=== PATIENT | female | born 1970 | race Caucasian/White ===

== ENCOUNTER → 2017-05-31 | Outpatient (CLI) | payer MEDICARE, MEDICAID ==
--- NOTE | 2017-05-31 16:25 | RADIOLOGY REPORT (SQ) ---
EXAM DESCRIPTION: CT CERVICAL SPINE WITHOUT COMPLETED DATE/TIME: 05/31/2017 1:07 pm REASON FOR STUDY: CERVICALGIA (M54.2) M54.2 CERVICALGIA COMPARISON: CT cervical spine 11/29/2015 TECHNIQUE: Axial images acquired through the cervical spine without intravenous contrast. Images re viewed with lung, soft tissue and bone windows. Reconstructed coronal and sagittal MPR images review ed. Images stored on PACS. All CT scanners at this facility use dose modulation, iterative reconstruction, and/or weight based d osing when appropriate to reduce radiation dose to as low as reasonably achievable (ALARA). [facility]: Dose Right [facility]: CareDose [facility]: Dose Right [facility]: Teradose 4D [facility]: [employer] RADIATION DOSE: Up-to-date CT equipment and radiation dose reduction techniques were employed. CTDIv ol: 23.2 mGy. DLP: 467 mGy-cm. mGy. LIMITATIONS: None. FINDINGS: ALIGNMENT: Straightening of cervical lordosis MINERALIZATION: Normal. VERTEBRAL BODIES: No fractures or dislocation. DISCS: Craniocervical junction, C1-2, C2-3, C3-4, C4-5 are all unremarkable. At C5-6, asymmetric left-sided high-grade foraminal stenosis results from left paracentral and forami nal bulky bony spurring. This best shown on axial image 43, and sagittal image 16 through 18. Borde rline central canal narrowing. No right foraminal narrowing. Mild left C6-7 foraminal narrowing from uncovertebral hypertrophy. No definite central stenosis or r ight foraminal narrowing. C7-T1 is unremarkable. FACETS, LATERAL MASSES, POSTERIOR ELEMENTS: No fractures. No dislocation. No acute findings. HARDWARE: None in the spine. VISUALIZED RIBS: No fractures. LUNG APICES AND SOFT TISSUES: No significant or acute findings. OTHER: No other significant finding. IMPRESSION: High-grade left C5-6 foraminal narrowing TECHNICAL DOCUMENTATION: JOB ID: [id number] Quality ID # [id number]: Final reports with documentation of one or more dose reduction techniques (e.g., Au tomated exposure control, adjustment of the mA and/or kV according to patient size, use of iterative reconstruction technique) 2010 [employer]- All Rights Reserved
== END ==
LOC: RAD 12:44
PROVIDERS: ATTEND Physician Assistant
DX: M54.2 Cervicalgia (principal); M48.02 Spinal stenosis, cervical region
CPT/HCPCS: 72125

== ENCOUNTER 2017-08-09 08:04 | Day surgery (SDC) | payer MEDICARE, MEDICAID ==
[2017-08-09 08:53] LABS: PROTHROMBIN TIME 12.7 SEC (11.4-15.4)
[2017-08-09 08:54] LABS: PARTIAL THROMBOPLASTIN TIME 32.4 SEC (23.5-35.8)
[2017-08-09] MEDS ORDERED: FENTANYL CITRATE INJ/PF 100 MCG/2 ML AMPUL ONE (09:43)
[2017-08-09] MEDS ORDERED: MIDAZOLAM 2 MG/2 ML INJ ONE (09:43)
[2017-08-09] MEDS ORDERED: OXYCODONE-ACETAMINOPHEN 5-325 MG TABLET ONE (10:49)
[2017-08-09] MEDS ORDERED: OXYCODONE-ACETAMINOPHEN 5-325 MG TABLET PO PRN (12:10)
[2017-08-09 12:20] VITALS: BP 166/93
--- NOTE | 2017-08-09 18:30 | RADIOLOGY REPORT (SQ) ---
EXAM DESCRIPTION: MYELOGRAM CERVICAL; CT CERVICAL SPINE WITH COMPLETED DATE/TIME: 08/09/2017 11:16 am; 08/09/2017 10:39 am REASON FOR STUDY: RT ARM PAIN M79.601 PAIN IN RIGHT ARM COMPARISON: CT cervical spine 05/31/2017 FLUOROSCOPY TIME: 1.2 minutes 12 digital radiographic images saved to PACS. Postmyelogram CT with sagittal and coronal reconstruct ions was also performed. TECHNIQUE: Fluoroscopic guided cervical myelogram. Postmyelogram CT with sagittal and coronal reconstructions. LIMITATIONS: None. PROCEDURE: After written consent and assessment were obtained, the patient was brought into the fluo roscopy room and placed prone on the table. The patient's lower back was prepped in a sterile fashio n and an entry site was selected under live fluoroscopic guidance. The entry site was anesthetized wi th 3 mL of 1% lidocaine. The spinal needle was advanced through the skin and into the thecal sac at the left paracentral L2-3 level. Contrast was injected into the thecal sac. Following the procedure the needle was removed and a sterile bandage was placed of the site. CONTRAST: 8 mL Isovue-300. IMAGES ACQUIRED: Postmyelogram prone oblique images Postmyelogram CT with sagittal and coronal reconstructions FINDINGS: Contrast was injected into the lumbar canal under fluoroscopy. There was a mixed subdural and intrathecal injection. No lumbar canal central stenosis. The prone oblique myelographic images demonstrate no central canal stenosis. Postmyelogram CT was performed, with axial images reviewed at soft tissue and bone windows, with sagi ttal and coronal reconstructions. Craniocervical junction, C1-2, C2-3, C3-4 are unremarkable. At C4-5, there is minimal posterior disc bulge and bony spurring without central or foraminal encroac hment. At C5-6, asymmetric left-sided uncovertebral hypertrophy causes high-grade left foraminal stenosis. This is best shown on axial images 43-45. No central stenosis or right foraminal narrowing at C5-6. At C6-7, minimal posterior disc bulging is present without significant central or right foraminal adis rowing. Minimal left foraminal narrowing. C7-T1, T1-2 are unremarkable. IMPRESSION: High-grade left C5-6 foraminal stenosis. COMMENT: Patient medication list reviewed: Yes- Quality ID# [id number]:Eligible professional attests to doc umenting in the medical record they obtained, updated, or reviewed the patient's current medications. . Quality ID 145: Final reports for procedures using fluoroscopy that document radiation exposure shruthi thao, or exposure time and number of fluorographic images (if radiation exposure indices are not avail able) TECHNICAL DOCUMENTATION: JOB ID: [id number] [employer]- All Rights Reserved
== END 2017-08-09 12:10 | disposition home or self-care (01) ==
LOC: RAD 08:04
PROVIDERS: ATTEND Nuclear Medicine
PROC: B01BYZZ Fluoroscopy of Spinal Cord using Other Contrast (ICD-10-PCS; principal; 2017-08-09)
DX: M79.601 Pain in right arm (principal); Z88.2 Allergy status to sulfonamides
CPT/HCPCS: 36415; 85610; 85730; 72240; 72126; J2250; J3010; A9270

== ENCOUNTER 2017-12-10 16:07 | Observation (INO) | payer MEDICARE, MEDICAID ==
[~2017-12-10 16:07] MED LIST: DEXAMETHASONE SOD PHOSPHATE INJ 4 MG/1 ML VIAL ONE; GLYCOPYRROLATE INJ 0.4 MG/2 ML VIAL ONE; KETOROLAC TROMETHAMINE 60 MG/2 ML SDV ONE; LIDOCAINE 2% INJ-PF (20 MG/ML) 2 ML AMPUL ONE; METOCLOPRAMIDE HCL INJ/PF 10 MG/2 ML SDV ONE; NEOSTIGMINE METHYLSULFATE 10 MG/10 ML VIAL ONE; ONDANSETRON HCL INJ/PF 4 MG/2 ML SDV ONE; SUCCINYLCHOLINE CHLORIDE INJ 200 MG/10 ML VIAL ONE
--- NOTE | 2017-12-10 16:36 | ER Document Report ---
ED Medical Screen (RME) - General Chief Complaint: Abdominal Problem Stated Complaint: POSSIBLE HERNIA Time Seen by Provider: 12/10/17 16:32 Notes: 47-year-old female with 2 week history of abdominal pain is been getting worse for the past few days and much worse since last night. Complains of nausea without vomiting, diarrhea, abdominal bloating, decreased appetite and fatigue. I have greeted and performed a rapid initial assessment of this patient. A comprehensive ED assessment and evaluation of the patient, analysis of test results and completion of the medical decision making process will be conducted by additional ED providers. TRAVEL OUTSIDE OF THE [place] IN LAST 30 DAYS: No - Related Data Allergies/Adverse Reactions: Sulfa (Sulfonamide Antibiotics) Allergy (Verified 12/10/17 16:11) Past Medical History - Social History Chew tobacco use (# tins/day): No Frequency of alcohol use: None Drug Abuse: None - Past Medical History Cardiac Medical History: Denies: Hx Coronary Artery Disease, Hx Heart Attack, Hx Hypertension Pulmonary Medical History: Denies: Hx Asthma, Hx Bronchitis, Hx COPD, Hx Pneumonia Neurological Medical History: Denies: Hx Cerebrovascular Accident, Hx Seizures Renal/ Medical History: Denies: Hx Peritoneal Dialysis Musculoskeltal Medical History: Reports Hx Arthritis - neck Past Surgical History: Reports: Hx Cholecystectomy - Immunizations Hx Diphtheria, Pertussis, Tetanus Vaccination: No Physical Exam - Vital signs Vitals: Temp Pulse Resp BP Pulse Ox 98.0 F 89 20 134/95 H 95 12/10/17 16:21 12/10/17 16:21 12/10/17 16:21 12/10/17 16:21 12/10/17 16:21 Course - Vital Signs Vital signs: Temp Pulse Resp BP Pulse Ox 98.0 F 89 20 134/95 H 95 12/10/17 16:21 12/10/17 16:21 12/10/17 16:22 12/10/17 16:21 12/10/17 16:21
--- NOTE | 2017-12-10 17:12 | RADIOLOGY REPORT (SQ) ---
EXAM DESCRIPTION: ACUTE ABDOMEN SERIES COMPLETED DATE/TIME: 12/10/2017 5:04 pm REASON FOR STUDY: nausea, diarrhea, bloating, abd pain COMPARISON: None. NUMBER OF VIEWS: Three views. TECHNIQUE: Frontal chest, supine abdomen and upright/decubitus abdomen radiographic images acquired. LIMITATIONS: None. FINDINGS: CHEST: Lungs clear of infiltrates. FREE AIR: None. No abnormal gas collections. BOWEL GAS PATTERN: Nonobstructive pattern. No dilated loops or air fluid levels. CALCIFICATIONS: No suspicious calcifications. HARDWARE: Clips in the upper abdomen. SOFT TISSUES: No gross mass or suggestion of organomegaly. BONES: No acute fracture. No worrisome bone lesions. OTHER: No other significant finding. IMPRESSION: NO RADIOGRAPHIC EVIDENCE FOR ACUTE ABDOMINAL DISEASE. TECHNICAL DOCUMENTATION: JOB ID: [id number] [employer]- All Rights Reserved
[2017-12-10 17:14] LABS: ABSOLUTE BASOPHILS # (AUTO) 0.1 10^3/uL (0.0-0.2); ABSOLUTE EOSINOPHILS # (AUTO) 0.3 10^3/uL (0.0-0.6); ABSOLUTE LYMPHOCYTES (AUTO) 3.5 10^3/uL (0.5-4.7); ABSOLUTE MONOCYTES (AUTO) 0.5 10^3/uL (0.1-1.4); ABSOLUTE NEUT (AUTO) 9.5 10^3/uL (1.7-8.2); BASOPHILS % (AUTO) 0.7 % (0-2); EOSINOPHILS % (AUTO) 2.4 % (0-6); HEMATOCRIT 44.1 % (36.0-47.0); HEMOGLOBIN 14.4 g/dL (12.0-15.5); LYMPHOCYTES % (AUTO) 25.4 % (13-45); MEAN CORPUSCULAR HEMOGLOBIN 27.1 pg (27.0-33.4); MEAN CORPUSCULAR HGB CONC 32.6 g/dL (32.0-36.0); MEAN CORPUSCULAR VOLUME 83 fl (80-97); MONOCYTES % (AUTO) 3.4 % (3-13); PLATELET COUNT 413 10^3/uL (150-450); RED BLOOD COUNT 5.32 10^6/uL (3.72-5.28); RED CELL DISTRIBUTION WIDTH 14.2 % (11.5-14.0); SEGMENTED NEUTROPHILS % (AUTO) 68.1 % (42-78); TOTAL CELLS COUNTED % (AUTO) 100 %; WHITE BLOOD COUNT 13.9 10^3/uL (4.0-10.5)
--- NOTE | 2017-12-10 17:30 | ER Document Report ---
ED General - General Chief Complaint: Abdominal Problem Stated Complaint: POSSIBLE HERNIA Time Seen by Provider: 12/10/17 16:32 Mode of Arrival: Medic Information source: Patient Notes: 47-year-old female to the emergency department chief complaint of abdominal pain. Patient states that she has a hernia. Feels like it has popped out and will not go back in. Prior surgery includes laparoscopic cholecystectomy. Some nausea. No vomiting at this time. No fever, chills, sweats. Denies any other complaints at this time. Presented to the ER in by ambulance because did not have another way to get here. TRAVEL OUTSIDE OF THE [place] IN LAST 30 DAYS: No - HPI Onset: Yesterday Onset/Duration: Gradual Quality of pain: Achy Severity: Moderate Pain Level: 3 Associated symptoms: Nausea Exacerbated by: Other - Palpation makes it more painful - Related Data Allergies/Adverse Reactions: Sulfa (Sulfonamide Antibiotics) Allergy (Verified 12/10/17 16:11) Past Medical History - General Information source: Patient - Social History Smoking Status: Never Smoker Chew tobacco use (# tins/day): No Frequency of alcohol use: None Drug Abuse: None Lives with: Family Family History: Reviewed & Not Pertinent Patient has suicidal ideation: No Patient has homicidal ideation: No - Past Medical History Cardiac Medical History: Denies: Hx Coronary Artery Disease, Hx Heart Attack, Hx Hypertension Pulmonary Medical History: Denies: Hx Asthma, Hx Bronchitis, Hx COPD, Hx Pneumonia Neurological Medical History: Denies: Hx Cerebrovascular Accident, Hx Seizures Renal/ Medical History: Denies: Hx Peritoneal Dialysis Musculoskeltal Medical History: Reports Hx Arthritis - neck Past Surgical History: Reports: Hx Cholecystectomy - Immunizations Hx Diphtheria, Pertussis, Tetanus Vaccination: No Review of Systems - Review of Systems Constitutional: denies: Fever, Malaise, Weakness EENT: denies: Eye pain, Eye discharge, Throat pain, Difficulty swallowing, Mouth swelling, Dental problem Cardiovascular: denies: Chest pain, Heart racing, Orthopnea, Dyspnea Respiratory: denies: Cough, Hurts to breathe, Short of breath, Wheezing Gastrointestinal: Abdominal pain, Nausea. denies: Vomiting, Constipation Female Genitourinary: denies: Irregular period, Vaginal discharge, Vaginal bleeding, Vaginal odor Musculoskeletal: denies: Back pain, Joint pain, Muscle pain, Muscle stiffness Skin: denies: Change in color, Dryness, Lumps, Rash Hematologic/Lymphatic: denies: Anemia, Blood clots, Easy bleeding, Easy bruising Neurological/Psychological: denies: Confusion, Depression, Hallucinations Physical Exam - Vital signs Vitals: Temp Pulse Resp BP Pulse Ox 98.0 F 89 20 134/95 H 95 12/10/17 16:21 12/10/17 16:21 12/10/17 16:21 12/10/17 16:21 12/10/17 16:21 Interpretation: Normal - General General appearance: Appears well, Alert - HEENT Head: Normocephalic, Atraumatic Eyes: Normal Pupils: PERRL - Respiratory Respiratory status: No respiratory distress Chest status: Nontender Breath sounds: Normal Chest palpation: Normal - Cardiovascular Rhythm: Regular Heart sounds: Normal auscultation Murmur: No - Abdominal Inspection: Normal Distension: No distension Bowel sounds: Normal Tenderness: Tender, Other - Patient with some mild tenderness to palpation in the midline abdomen just superior to the umbilicus. Patient has a large body habitus making it slightly difficult in palpating hernia. Organomegaly: No organomegaly - Back Back: Normal, Nontender - Extremities General upper extremity: Normal inspection, Nontender, Normal color, Normal ROM , Normal temperature General lower extremity: Normal inspection, Nontender, Normal color, Normal ROM , Normal temperature, Normal weight bearing. No: Wyatt's sign - Neurological Neuro grossly intact: Yes Cognition: Normal Orientation: AAOx4 [place] Coma Scale Eye Opening: Spontaneous [place] Coma Scale Verbal: Oriented [place] Coma Scale Motor: Obeys Commands [place] Coma Scale Total: 15 Speech: Normal Motor strength normal: LUE, RUE, LLE, RLE Sensory: Normal - Psychological Associated symptoms: Normal affect, Normal mood - Skin Skin Temperature: Warm Skin Moisture: Dry Skin Color: Normal Course - Re-evaluation Re-evalutation: 12/10/17 17:58 X-ray unremarkable. Labs show elevated WBC count. Cannot exclude a incarcerated or strangulate hernia. Will have to proceed with CT 12/10/17 19:[address] confirming there is a hernia there. Will consult with surgery for possible incarcerated hernia. 12/10/17 19:45 Patient seen by surgery. Thinks that this would need to be fixed tonight. Taken to the OR at this time. Comfortable with this plan. is accepting the patient to the OR at this time. - Vital Signs Vital signs: Temp Pulse Resp BP Pulse Ox 98.0 F 89 20 134/95 H 95 12/10/17 16:21 12/10/17 16:21 12/10/17 16:22 12/10/17 16:21 12/10/17 16:21 - Laboratory Result Diagrams: 12/10/17 16:44 12/10/17 16:44 Laboratory results interpreted by me: 12/10/17 12/10/17 16:44 16:44 WBC 13.9 H RBC 5.32 H RDW 14.2 H Absolute Neutrophils 9.5 H AST 92 H ALT 103 H Discharge - Discharge Clinical Impression: Incarcerated hernia of abdominal cavity Disposition: ADMITTED OBSERVATION Admitting Provider: Surgicalist Vero Hannon Referrals: LILLIAM MUHAMMAD MD [Primary Care Provider] - Follow up as needed
[2017-12-10 17:31] LABS: ALANINE AMINOTRANSFERASE 103 U/L (9-52); ALBUMIN 4.8 g/dL (3.5-5.0); ALKALINE PHOSPHATASE 124 U/L (38-126); ANION GAP 12 (5-19); ASPARTATE AMINO TRANSFERASE 92 U/L (14-36); BILIRUBIN,DIRECT 0.1 mg/dL (0.0-0.4); BILIRUBIN,TOTAL 0.6 mg/dL (0.2-1.3); BLOOD UREA NITROGEN 10 mg/dL (7-20); CALCIUM 10.2 mg/dL (8.4-10.2); CARBON DIOXIDE 29 mmol/L (22-30); CHLORIDE 101 mmol/L (98-107); GLUCOSE 91 mg/dL (75-110); POTASSIUM 4.4 mmol/L (3.6-5.0); SODIUM 142.1 mmol/L (137-145); TOTAL PROTEIN 7.8 g/dL (6.3-8.2)
[2017-12-10] MEDS ORDERED: FENTANYL CITRATE INJ/PF 100 MCG/2 ML AMPUL IV ONE (17:34)
--- NOTE | 2017-12-10 18:50 | RADIOLOGY REPORT (SQ) ---
EXAM DESCRIPTION: CT ABD/PELVIS WITH IV ONLY COMPLETED DATE/TIME: 12/10/2017 6:08 pm REASON FOR STUDY: abd pain COMPARISON: None. TECHNIQUE: CT scan of the abdomen and pelvis performed using helical scanning technique with dynamic intravenous contrast injection. No oral contrast. Images reviewed with lung, soft tissue, and bone windows. Reconstructed coronal and sagittal MPR images reviewed. Delayed images for evaluation of the urinary system also acquired. All images stored on PACS. All CT scanners at this facility use dose modulation, iterative reconstruction, and/or weight based d osing when appropriate to reduce radiation dose to as low as reasonably achievable (ALARA). [facility]: Dose Right [facility]: CareDose [facility]: Dose Right [facility]: Teradose 4D [facility]: [employer] CONTRAST TYPE AND DOSE: contrast/concentration: Isovue 370.00 mg/ml; Total Contrast Delivered: 100.0 ml; Total Saline Delivered: 45.1 ml RENAL FUNCTION: Creatinine 0.63 RADIATION DOSE: CT Rad equipment meets quality standard of care and radiation dose reduction techniq ues were employed. CTDIvol: 18.3 - 20.2 mGy. DLP: 1961 mGy-cm.. LIMITATIONS: None. FINDINGS: LOWER CHEST: No significant findings. No nodules or infiltrates. LIVER: Fatty liver. Normal size. No masses. No dilated ducts. SPLEEN: Normal size. No focal lesions. PANCREAS: No masses. No significant calcifications. No adjacent inflammation or peripancreatic fluid collections. Pancreatic duct not dilated. GALLBLADDER: Surgically absent. ADRENAL GLANDS: No significant masses or asymmetry. RIGHT KIDNEY AND URETER: No solid masses. No significant calcifications. No hydronephrosis or hyd roureter. LEFT KIDNEY AND URETER: No solid masses. No significant calcifications. No hydronephrosis or hydr oureter. AORTA AND VESSELS: No aneurysm. No dissection. Renal arteries, SMA, celiac without stenosis. RETROPERITONEUM: No retroperitoneal adenopathy, hemorrhage or masses. BOWEL AND PERITONEAL CAVITY: No masses or inflammatory changes. No free fluid or peritoneal masses. APPENDIX: Not visualized. PELVIS: No mass. No free fluid. Normal bladder. 2.5 cm follicular cyst in the right ovary not signi ficant. ABDOMINAL WALL: No masses. Small fat containing ventral hernia just above the umbilicus. Some mild associated inflammatory change is seen in the abdominal wall and mesenteric fat. BONES: No significant or acute findings. OTHER: No other significant finding. IMPRESSION: 1. Small fat containing ventral hernia with mild associated inflammatory change. 2. Fatty liver. 3. Status post cholecystectomy. 4. Appendix not visualized. TECHNICAL DOCUMENTATION: JOB ID: [id number] Quality ID # [id number]: Final reports with documentation of one or more dose reduction techniques (e.g., Au tomated exposure control, adjustment of the mA and/or kV according to patient size, use of iterative reconstruction technique) 2010 [employer]- All Rights Reserved
[2017-12-10] MEDS ORDERED: CEFAZOLIN 2 GM/D5W RTU 2 GM/50 ML RTUPB IV ONE (19:45)
--- NOTE | 2017-12-10 20:14 | PDOC H&P ---
History of Present Illness Admission Date/PCP: 12/10/17 19:57 LILLIAM MUHAMMAD MD Patient complains of: This 47year-old female with 2 week history of abdominal pain which has been getting worse for the past few days and much worse since last night. History of Present Illness: STANLEY PERRY is a 47 year old female, who complains of nausea without vomiting, diarrhea, abdominal bloating, decreased appetite and fatigue. Patient states that her abdominal wall hernia has been present for a month, but has enlarged over the past 2 weeks, with worsening pain. Hernia has not been able to be reduced as previously. Patient comes to ., with an incarcerated supra- umbilical ventarl hernia, for which surgical referral was made. Past Medical History Cardiac Medical History: Denies: Coronary Artery Disease, Myocardial Infarction, Hypertension Pulmonary Medical History: Denies: Asthma, Bronchitis, Chronic Obstructive Pulmonary Disease (COPD), Pneumonia Neurological Medical History: Denies: Seizures Musculoskeltal Medical History: Reports: Arthritis - neck Hematology: Denies: Anemia Past Surgical History Past Surgical History: Reports: Cholecystectomy Social History Lives with: Family Smoking Status: Never Smoker Family History Family History: Reviewed & Not Pertinent Parental Family History Reviewed: No Children Family History Reviewed: No Sibling(s) Family History Reviewed.: No Medication/Allergy Home Medications: Alprazolam [Xanax] 1 mg PO BID 08/09/17 Oxycodone HCl/Acetaminophen [Oxycodone-Acetaminophen 10-325] 1 mg PO Q6 Pantoprazole Sodium [Protonix] 40 mg PO DAILY 08/09/17 Sertraline HCl [Zoloft] 1 mg PO 08/09/17 Tizanidine HCl [Zanaflex] 4 mg PO BID 08/09/17 Allergies/Adverse Reactions: Sulfa (Sulfonamide Antibiotics) Allergy (Verified 12/10/17 16:11) Physical Exam Vital Signs: Temp Pulse Resp BP Pulse Ox 98.0 F 89 20 134/95 H 95 12/10/17 16:21 12/10/17 16:21 12/10/17 16:22 12/10/17 16:21 12/10/17 16:21 General appearance: PRESENT: cooperative, mild distress, obese, well-developed, well-nourished Head exam: PRESENT: atraumatic, normocephalic Eye exam: PRESENT: conjunctiva pink Mouth exam: PRESENT: moist, neck supple Neck exam: PRESENT: full ROM. ABSENT: JVD, lymphadenopathy, tenderness, thyromegaly, tracheal deviation Respiratory exam: PRESENT: clear to auscultation augustin, unlabored Cardiovascular exam: PRESENT: RRR GI/Abdominal exam: PRESENT: guarding, normal bowel sounds, soft, tenderness - Reducible supra-umbilical hernia with 4 x 4 cm defect., other - Reducible supra- umbilical hernia with 4 x 4 cm defect. Rectal exam: PRESENT: deferred Extremities exam: PRESENT: tenderness Neurological exam: PRESENT: alert, altered, awake, oriented to person, oriented to place, oriented to time Results Impressions: Acute Abdomen Series 12/10/17 16:35 IMPRESSION: NO RADIOGRAPHIC EVIDENCE FOR ACUTE ABDOMINAL DISEASE. Abdomen/Pelvis CT 12/10/17 17:28 IMPRESSION: 1. Small fat containing ventral hernia with mild associated inflammatory change. 2. Fatty liver. 3. Status post cholecystectomy. 4. Appendix not visualized. Assessment & Plan - Plan Summary Plan Summary: Patient to be taken to O.R for repair of incarcerated ventral hernia.
[2017-12-10] MEDS ORDERED: HYDROMORPHONE HCL INJ/PF 2 MG/ML AMPULE ONE (20:28)
[2017-12-10] MEDS ORDERED: FENTANYL CITRATE INJ/PF 100 MCG/2 ML AMPUL ONE (20:28)
[2017-12-10] MEDS ORDERED: MIDAZOLAM 2 MG/2 ML INJ ONE (20:29)
[2017-12-10] MEDS ORDERED: PROPOFOL INJ 200 MG/20 ML VIAL IV ONE (20:29)
[2017-12-10] MEDS ORDERED: EPHEDRINE SULFATE INJ 50 MG/1 ML AMPULE ONE (20:29)
[2017-12-10] MEDS ORDERED: ACETAMINOPHEN 100 ML IV ONE (20:29)
[2017-12-10] MEDS ORDERED: ONDANSETRON HCL INJ/PF 4 MG/2 ML SDV IV PRN ×2 (21:40→22:28)
[2017-12-10] MEDS ORDERED: MEPERIDINE HCL/PF INJ 25 MG/1 ML DISP.SYRIN IV PRN (21:40)
[2017-12-10] MEDS ORDERED: OXYCODONE-ACETAMINOPHEN 5-325 MG TABLET PO PRN ×2 (21:40)
[2017-12-10] MEDS ORDERED: DIPHENHYDRAMINE HCL 50 MG/ML VIAL IV PRN (21:40)
[2017-12-10] MEDS ORDERED: PROMETHAZINE HCL INJ 25 MG/1 ML VIAL IV PRN ×2 (21:40)
[2017-12-10] MEDS ORDERED: MORPHINE SULFATE 10 MG/ML INJ IV PRN (21:40)
[2017-12-10] MEDS ORDERED: FENTANYL CITRATE INJ/PF 100 MCG/2 ML AMPUL IV PRN ×3 (21:40)
--- NOTE | 2017-12-10 22:24 | Operative Report ---
Operative Report DATE OF SURGERY: 12/10/17 PREOPERATIVE DIAGNOSIS: Incarcerated supraumbilical ventral hernia POSTOPERATIVE DIAGNOSIS: Same OPERATION: REPAIR OF INCARCERATED SUPRAUMBILICAL VENTRAL HERNIA SURGEON: QUE VALLEJO ANESTHESIA: GA TISSUE REMOVED OR ALTERED: n/a COMPLICATIONS: NONE ESTIMATED BLOOD LOSS: 10CC INTRAOPERATIVE FINDINGS: INCARCERATED SUPRAUMBILICAL VENTRAL HERNIA CONTAINING OMENTAL FAT PROCEDURE: SEE DICTATION
[2017-12-10] MEDS ORDERED: DEXTROSE 5%-LACTATED RINGERS 1,000 ML IV PRN (22:28)
[2017-12-10] MEDS: FENTANYL CITRATE INJ/PF 100 MCG/2 ML AMPUL ONE ×2 (22:39→22:52)
[2017-12-10] MEDS ORDERED: MORPHINE SULFATE 10 MG/ML INJ ONE (23:07)
--- NOTE | 2017-12-10 23:19 | OPERATIVE REPORT E ---
Operative Report NAME: STANLEY PERRY : 1970 AGE: 47Y DATE OF SURGERY: 12/10/2017 ROOM: ED15 PREOPERATIVE DIAGNOSIS: Incarcerated supraumbilical ventral hernia. POSTOPERATIVE DIAGNOSIS: Incarcerated supraumbilical ventral hernia. PROCEDURE: Repair of incarcerated supraumbilical ventral hernia. SURGEON: QUE VALLEJO M.D. ANESTHESIA: General. REPLACEMENT: Crystalloids. DRAINS: None. COMPLICATIONS: None. CONDITION: Stable. FINDINGS: The patient had an incarcerated supraumbilical ventral hernia which contained omental fat only. The patient presented to the hospital with a 1-month history of a progressively-enlarging supraumbilical ventral hernia over the last 10-14 days *------*, he has been noting increasing pain and enlargement of the hernia. The patient presented to the emergency room in moderate distress and was found to have a tender supraumbilical ventral hernia that was incarcerated. The patient underwent a CT scan, which showed omental fat stuck in the hernia, for which patient is now being brought to the operating room for repair. DESCRIPTION OF PROCEDURE: The patient was brought to the operating suite and placed in supine position on the operating table. Monitoring devices were attached. IV sedation was administered followed by the induction of general anesthesia. The patient's abdomen was then prepped and draped in the usual sterile manner, and a timeout was achieved. After all concurred, a *------* incision in the midline was made directly above the supraumbilical hernia. Incision was carried through skin and subcutaneous tissue, down to the linea alba. The patient was noted to have omental fat incarcerated in the hernia. We identified the fascial edges and the omental fat from the hernia rim and took down all the adhesions from around the rim. Once we were able to take down all the adhesions around the rim, we were able to reduce the omental fat back into the peritoneal cavity, and we cleared the fascial edges of any further adhesions and from the incarceration. Once the fascial edges were free of adhesions and subcutaneous tissue, we then repaired the hernia with interrupted #1 Prolene sutures; approximately 6 sutures were needed to repair the defect. After closing the defect with #1 Prolene, we then irrigated the wound with normal saline and then closed the subcutaneous tissue with 2-0 Vicryl followed by skin sita. The patient tolerated the procedure well. The sponge and instrument count was correct. The patient was discharged to the PACU in stable condition. DICTATING PHYSICIAN: QUE VALLEJO M.D. [id number] PHY#: [id number] ID: [id number] JOB#: [id number] ACCT: [id number] cc:QUE VALLEJO M.D. >
[2017-12-11] MEDS: OXYCODONE-ACETAMINOPHEN 5-325 MG TABLET PO PRN ×4 (01:04→15:15)
[2017-12-11] MEDS: MORPHINE SULFATE 10 MG/ML INJ IV PRN ×2 (02:19→08:05)
[2017-12-11 15:05] LABS: APPEARANCE,URINE SLIGHTLY-CLOUDY; BILIRUBIN,URINE NEGATIVE (NEGATIVE); COLOR,URINE YELLOW; GLUCOSE, URINE NEGATIVE (NEGATIVE); KETONES,URINE NEGATIVE (NEGATIVE); LEUKOCYTE ESTERASE,URINE TRACE (NEGATIVE); NITRITE,URINE NEGATIVE (NEGATIVE); PROTEIN,URINE NEGATIVE (NEGATIVE); URINE SPECIFIC GRAVITY 1.035; UROBILINOGEN,URINE NEGATIVE mg/dL (<2.0)
[2017-12-11 15:23] VITALS: BP 115/68
--- NOTE | 2017-12-11 19:00 | PDOC DISCHARGE SUMMARY ---
General - Admit/Disc Date/PCP Admission Date/Primary Care Provider: 12/10/17 19:27 LILLIAM MUHAMMAD MD Discharge Date: 12/11/17 - Additional Information Resuscitation Status: Full Code Discharge Diet: As Tolerated, Regular Discharge Activity: Activity As Tolerated, Balance Activity w/Rest, No Lifting Over 10 Pounds, No Lifting/Push/Pulling, Slowly Increase Activity, No tub bath, Walk Frequently Home Medications: Alprazolam [Xanax] 1 tab PO BID PRN 12/11/17 Buprenorphine HCl [Belbuca] 1 film BID 12/11/17 Diclofenac Sodium/Misoprostol [Diclofenac-Misoprost 75-0.2 Tb] 1 tab PO DAILY Oxycodone HCl/Acetaminophen [Percocet 5-325 mg Tablet] 1 tab PO Q6HP PRN Pantoprazole Sodium 40 mg PO DAILY 12/11/17 Sertraline HCl [Zoloft] 100 mg PO DAILY 12/11/17 Simvastatin 20 mg PO QHS 12/11/17 Tizanidine HCl 1 tab PO BID PRN 12/11/17 History of Present Illness Patient complains of: Patient presented with incarcerated umbilical hernia. History of Present Illness: STANLEY PERRY is a 47 year old female Hospital Course Hospital Course: Patient was taken to the operating room by Dr. Lauren Kilgore on 12/10/2017. Underwent open repair of ventral hernia without mesh. Postoperatively she has done well. She has been advanced to diet. She is ambulating and has no complaints. Ready for discharge. Physical Exam Vital Signs: Temp Pulse Resp BP Pulse Ox 98 F 87 18 115/68 99 12/11/17 18:19 12/11/17 18:19 12/11/17 18:19 12/11/17 18:19 12/11/17 18:19 Intake & Output 12/10/17 12/11/17 12/12/17 06:59 06:59 06:59 Intake Total 1550 Output Total 610 Balance 940 Results Laboratory Results: 12/11/17 14:42 Urine Color YELLOW Urine Appearance SLIGHTLY-CLOUDY Urine pH 5.0 Ur Specific [place] 1.035 Urine Protein NEGATIVE Urine Glucose (UA) NEGATIVE Urine Ketones NEGATIVE Urine Blood NEGATIVE Urine Nitrite NEGATIVE Ur Leukocyte Esterase TRACE H Urine WBC (Auto) 16 Urine RBC (Auto) 1 Impressions: Acute Abdomen Series 12/10/17 16:35 IMPRESSION: NO RADIOGRAPHIC EVIDENCE FOR ACUTE ABDOMINAL DISEASE. Abdomen/Pelvis CT 12/10/17 17:28 IMPRESSION: 1. Small fat containing ventral hernia with mild associated inflammatory change. 2. Fatty liver. 3. Status post cholecystectomy. 4. Appendix not visualized. Plan Discharge Plan: Discharge home. She will return to the follow-up for follow-up at the surgery clinic in 7-10 days. Discharge prescription for Percocet 5. Diet and activity instructions were given to the patient. Time Spent: Less than 30 Minutes
== END 2017-12-11 18:59 | disposition home or self-care (01) ==
LOC: ER 16:07 → EH 19:27 → UNDOADMOB 19:57 → EH 19:57 → 2N 23:55 → UNDOADMOB 12-11 00:29 → EH 12-11 00:29 → 2N 12-11 00:29
PROVIDERS: ADMIT Surgery; ATTEND Surgery
PROC: 0WQF0ZZ Repair Abdominal Wall, Open Approach (ICD-10-PCS; principal; 2017-12-10 21:30)
DX: K43.6 Other and unspecified ventral hernia with obstruction, without gangrene (principal); Z90.49 Acquired absence of other specified parts of digestive tract; Z79.899 Other long term (current) drug therapy
CPT/HCPCS: 99285; 96375; 96365; 36415; 85025; 80053; 81001; 74022; 74177; 49561; G0378; J2250; J1100; J1885; J3010; J2765; J2270 ×2; A9270; J1170; J0330; J2405; J2704; J0690; J0131; J3490; 752

== ENCOUNTER 2018-09-13 13:12 | Day surgery (SDC) | payer MEDICARE, MEDICAID ==
[~2018-09-13 13:12] MED LIST changes: -DEXAMETHASONE SOD PHOSPHATE INJ 4 MG/1 ML VIAL ONE; +EPINEPHRINE INJ 1 MG/10 ML DISP.SYRIN ONE; +FENTANYL CITRATE INJ/PF 100 MCG/2 ML AMPUL ONE; +FLUMAZENIL INJ 0.5 MG/5 ML VIAL ONE; +GLUCAGON,HUMAN RECOMB 1 MG INJ ONE; -GLYCOPYRROLATE INJ 0.4 MG/2 ML VIAL ONE; -KETOROLAC TROMETHAMINE 60 MG/2 ML SDV ONE; -LIDOCAINE 2% INJ-PF (20 MG/ML) 2 ML AMPUL ONE; -METOCLOPRAMIDE HCL INJ/PF 10 MG/2 ML SDV ONE; +MIDAZOLAM 2 MG/2 ML INJ ONE; +NALOXONE HCL INJ/PF 0.4 MG/1 ML SDV ONE; -NEOSTIGMINE METHYLSULFATE 10 MG/10 ML VIAL ONE; -SUCCINYLCHOLINE CHLORIDE INJ 200 MG/10 ML VIAL ONE
[2018-09-13] MEDS: MIDAZOLAM 2 MG/2 ML INJ ONE ×2 (14:00→14:04)
--- NOTE | 2018-09-13 14:19 | Operative Report ---
Operative Report DATE OF SURGERY: 09/13/18 Operative Report: The risks benefits and alternatives of the procedure explained to the patient in detail and informed consent is obtained.A GIF Olympus video scope was inserted into the patient's mouth and hypopharynx, the esophagus is identified intubated and insufflated ,the scope was then advanced through the esophagus stomach and duodenum ,retroflexion maneuver is done ,the esophagus stomach and first and second portions of the duodenum examined PREOPERATIVE DIAGNOSIS: Epigastric pain, gastroesophageal reflux disease POSTOPERATIVE DIAGNOSIS: Gastritis status post biopsy. Esophagitis versus Todd's status post biopsy OPERATION: EGD with biopsy SURGEON: VIRGINIA SALINAS ANESTHESIA: Moderate Sedation - 4 mg of Versed, 100 mcg of fentanyl. Conscious sedation monitoring time 30 minutes. TISSUE REMOVED OR ALTERED: As noted above. COMPLICATIONS: None. ESTIMATED BLOOD LOSS: None. INTRAOPERATIVE FINDINGS: As noted above. PROCEDURE: Patient tolerated the procedure well. No immediate postprocedure complications are noted. Patient discharged in good condition. Discharge date 09/13/2018. Discharge diet: Regular. Discharge activity: Regular. 2-3-week follow-up to discuss findings. Patient is instructed to call the office or proceed to the emergency room should there be any further problems or questions. Wait on the pathology.
[2018-09-13 15:11] VITALS: BP 128/81
== END 2018-09-13 15:20 | disposition home or self-care (01) ==
LOC: END 13:12
PROVIDERS: ATTEND Internal Medicine Gastroenterology
DX: K29.50 Unspecified chronic gastritis without bleeding (principal); K21.0 Gastro-esophageal reflux disease with esophagitis; I10 Essential (primary) hypertension; E78.5 Hyperlipidemia, unspecified; E66.9 Obesity, unspecified; Z68.36 Body mass index [BMI] 36.0-36.9, adult; M19.90 Unspecified osteoarthritis, unspecified site; E78.00 Pure hypercholesterolemia, unspecified; R73.03 Prediabetes; Z79.899 Other long term (current) drug therapy; Z79.51 Long term (current) use of inhaled steroids; Z88.2 Allergy status to sulfonamides
CPT/HCPCS: 43239; 88305 ×2; J2250; J3010; J0171; J1610; J2310; J2405; J3490